=== PATIENT | female | born 1965 | race Asian ===

== ENCOUNTER 2022-06-12 06:31 | Day surgery (SDC) | payer OTHER ==
[~2022-06-12] VITALS: Ht 152.4 cm; Wt 40.9 kg
[~2022-06-12 06:31] MED LIST: SODIUM CHLORIDE 0.9% 1,000 ML IV ONE
[2022-06-12] MEDS ORDERED: LIDOCAINE 2% 11 ML JELLY TP ONE (06:32)
[2022-06-12] MEDS ORDERED: BENZOCAINE 20% 50 MCG/SPRAY 57 GM TP ONE (06:32)
[2022-06-12] MEDS ORDERED: LIDOCAINE 4% 50 ML SOLUTION TP ONE (06:32)
[2022-06-12] MEDS ORDERED: SODIUM CHLORIDE 0.9% 1,000 ML ONE (06:34)
[2022-06-12] MEDS ORDERED: KETOROLAC TROMETHAMINE 0.5% 5 ML OPHTHALMIC SOLUTION ONE (06:34)
[2022-06-12] MEDS ORDERED: TETRACAINE HCL/PF 0.5% 4 ML OPHTHALMIC SOLUTION ONE (06:34)
[2022-06-12] MEDS ORDERED: MOXIFLOXACIN HCL 0.5% 3 ML OPHTHALMIC SOLUTION ONE (06:35)
[2022-06-12 07:02] LABS: COVID AG,FIA SOURCE NASAL SWAB
[2022-06-12] MEDS ORDERED: FentaNYL CITRATE PF 100 MCG/2 ML VIAL ONE (08:14)
[2022-06-12] MEDS ORDERED: MIDAZOLAM HCL 5 MG/ML VIAL ONE (08:15)
[2022-06-12] MEDS ORDERED: MethylPREDNISolone SOD SUCC 125 MG/2 ML VIAL IVP ONE (09:30)
[2022-06-12] MEDS ORDERED: SUCR1ORA15 PO (09:32)
[2022-06-12] MEDS ORDERED: CHOL25TA4 PO (09:32)
[2022-06-12] MEDS ORDERED: SIMV-259 PO (09:32)
[2022-06-12] MEDS ORDERED: GABA-1181 PO (09:32)
[2022-06-12] MEDS ORDERED: MONT-35 PO (09:32)
[2022-06-12] MEDS ORDERED: AMLO-257 PO (09:32)
[2022-06-12] MEDS ORDERED: MethylPREDNISolone SOD SUCC 125 MG/2 ML VIAL ONE (09:33)
[2022-06-12] MEDS ORDERED: TRAZ-252 PO (11:43)
[2022-06-12] MEDS ORDERED: ESCI5TAB16 PO (11:43)
[2022-06-12] MEDS ORDERED: ATEN-73 PO (11:43)
[2022-06-12] MEDS ORDERED: OXYGEN THERAPY IH SCH (20:00)
== END 2022-06-12 12:25 | disposition home or self-care (01) ==
LOC: SURGERY 06:31
PROVIDERS: ATTEND Internal Medicine Critical Care Medicine
DX: J38.4 Edema of larynx (principal); B37.0 Candidal stomatitis; Z20.822 Contact with and (suspected) exposure to COVID-19; I10 Essential (primary) hypertension; Z79.899 Other long term (current) drug therapy; Z98.890 Other specified postprocedural states
CPT/HCPCS: 31623; 87101; 87220; 87070; 88108; 88305; 88312; 31624; 71045; 87015; 87426; 87206; J3010; J2930; J2250; Q9967; J7030; C9803; Z7610